=== PATIENT | female | born 1975 | race Caucasian/White ===

== ENCOUNTER 2023-01-30 00:42 | Outpatient (CLI) | payer BC, SELFPAY ==
--- NOTE | 2023-01-30 | DI.MRI_ITS ---
Exam(s) MR CERVICAL SPINE WO EXAM: MR CERVICAL SPINE WO CLINICAL HISTORY: NECK,SCAPULAR,SHOULDER PAIN,M54.2 TECHNIQUE: Multiplanar multisequence MRI of the cervical spine was performed without intravenous con trast. COMPARISON: Prior cervical MRI of February 2017. FINDINGS: CERVICOMEDULLARY JUNCTION: Intact with no evidence of cerebellar tonsillar ectopia. No obvious abnor mality of the odontoid process. No evidence of Chiari 1 malformation. CERVICAL SPINAL CORD: There is no abnormal signal in the cervical spinal cord and no evidence of foca l cord atrophy nor focal cord swelling. OSSEOUS:There are no cervical fractures evident. No significant osseous lesions in the cervical vert ebrae. INDIVIDUAL LEVELS: C2-3: No disc herniation nor central canal stenosis. There is arthropathy of the left facet joint at this level evident with no foot arthropathy of the right facet joint. Similar to previous. Also le ft-sided Luschka joint osteophyte. There is no foraminal stenosis on the right side. There is moder ate foraminal stenosis on the left side. C3-4: No disc herniation nor central canal stenosis.Asymmetric left-sided facet arthropathy also note d at this level and small left-sided Luschka joint osteophyte. No foraminal stenosis on the right si de. There is element of foraminal stenosis on the left side again evident. C4-5: No disc herniation nor central canal stenosis. Left facet joint unremarkable at this level.. No foraminal stenosis on the left side at this level.There is some facet arthropathy on the right saad e at this level and an element of foraminal stenosis on the right side noted. C5-6: This level exhibits normal disc height. No disc herniation or central canal stenosis. No Lusc hka joint osteophytes evident at this level. Mild degenerative change noted in the right facet joint . No degenerative changes in the left facet joint. No foraminal stenosis on either side at this lev el. C6-7: This level exhibits disc space narrowing anteriorly. Posteriorly there is annular bulging but without a dominant disc herniation. This annular bulging mildly indents the anterior thecal sac but not the spinal cord. There is no significant facet arthropathy at this level. In the exiting left n eural foramen there is a disc-Luschka joint complex with mild foraminal stenosis. C7-T1: No disc herniation nor central canal stenosis. No facet arthropathy.No foraminal stenosis. IMPRESSION: 1. There is no central spinal canal stenosis but there is multilevel mild asymmetric foraminal stenos is which is related to asymmetric facet arthropathy, as described individually above. 2. On the left side at C6-7 level there is a Luschka joint-osteophyte complex which results in mild f oraminal stenosis. 3. Only mild change when compared to 02/16/2017 DATA REPOSITORY:
== END 2023-01-30 01:02 ==
LOC: DI 00:42
PROVIDERS: PCP Physician Assistant; Visit Provider Nurse Practitioner
DX: M25.78 Osteophyte, vertebrae (principal); M99.53 Intervertebral disc stenosis of neural canal of lumbar region
CPT/HCPCS: 72141